=== PATIENT | male | born 1985 | race Caucasian/White ===

== ENCOUNTER → 2021-09-26 | Outpatient (CLI) | payer OTHER ==
--- NOTE | 2021-09-26 14:32 | RAD ---
Complete abdominal ultrasound 09/26/2021 INDICATION: Abdominal discomfort, left flank pain COMPARISON STUDY: None Discussion: Ultrasound evaluation of the abdomen was performed. Static images are submitted to PACS. Visualized aorta is unremarkable in appearance. Visualized pancreas is unremarkable. Visualized IVC i s unremarkable. The liver is normal in size measuring 16.3 cm longitudinally. No focal hepatic lesion s are identified. No intrahepatic biliary dilatation is seen. The main portal vein appears to be porter sly patent. The gallbladder demonstrates minimal echogenic debris likely sludge. There is no wall thi ckening or definitive gallstone. No pericholecystic fluid is seen. The common bile duct is nondilated at 2 mm. The right kidney is unremarkable in appearance measuring 10.8 cm in length. Spleen is unrem arkable in appearance. The left kidney is unremarkable in appearance measuring 10.4 cm in length. IMPRESSION: 1. Probable sludge within the gallbladder lumen. 2. Otherwise unremarkable abdominal ultrasound Electronically signed by: Obi Soliman MD (09/26/2021 2:30 PM) [id number]
== END ==
LOC: US 07:53
PROVIDERS: ATTEND Family Medicine Sports Medicine
DX: R10.9 Unspecified abdominal pain (principal)
CPT/HCPCS: 76700